=== PATIENT | female | born 1950 | race Caucasian/White ===

== ENCOUNTER → 2017-10-04 | Outpatient (CLI) | payer MEDICARE ==
[~2017-10-04] MED LIST: CALCTAB32 OR; CYAN1TAB24 PO; GABA300C5 PO; GLUC1CAP16 PO; GLUC500C4 OR; LEVO.075 PO; LEVO100T5 PO; MULTTAB67 PO; OXYC-360 PO; POTA2.5T PO; SM M250T PO; TAB-TAB PO; VIVE0.02 TD
[2017-10-04 11:47] LABS: AUTOMATED NEUTROPHIL # 6.4 TH/MM3 (1.8-7.7); BASOPHIL # 0.1 TH/MM3 (0-0.2); BASOPHIL % 0.7 % (0.0-2.0); EOSINOPHIL # 0.2 TH/MM3 (0-0.4); EOSINOPHIL % 1.9 % (0.0-4.0); HEMATOCRIT 44.1 % (35.0-46.0); HEMOGLOBIN 14.9 GM/DL (11.6-15.3); LYMPHOCYTE # 2.8 TH/MM3 (1.0-4.8); MEAN CELL VOLUME 89.2 FL (80.0-100.0); MEAN CORPUSCULAR HEMOGLOBIN 30.1 PG (27.0-34.0); MEAN CORPUSCULAR HGB CONC 33.8 % (32.0-36.0); MEAN PLATELET VOLUME 9.7 FL (7.0-11.0); MONO % 8.4 % (0.0-8.0); MONOCYTE # 0.9 TH/MM3 (0-0.9); PLATELET COUNT 241 TH/MM3 (150-450); RED BLOOD COUNT 4.95 MIL/MM3 (4.00-5.30); WHITE BLOOD COUNT 10.4 TH/MM3 (4.0-11.0)
[2017-10-04 11:48] LABS: PROTHROMBIN TIME - PATIENT 10.2 SEC (9.8-11.6)
[2017-10-04 12:12] LABS: ALBUMIN 3.9 GM/DL (3.4-5.0); AST (GOT) 14 U/L (15-37); BLOOD UREA NITROGEN 20 MG/DL (7-18); CALCIUM 9.1 MG/DL (8.5-10.1); CHLORIDE 104 MEQ/L (98-107); CREATININE 0.69 MG/DL (0.50-1.00); GLOMERULAR FILTRATION RATE 85 ML/MIN (>89); GLUCOSE,FASTING 91 MG/DL (74-99); SODIUM (NA) 140 MEQ/L (136-145)
[2017-10-04 12:13] LABS: ALT (GPT) 24 U/L (10-53)
[2017-10-04 12:16] LABS: ALKALINE PHOSPHATASE 107 U/L (45-117); TOTAL BILIRUBIN ADULT 0.4 MG/DL (0.2-1.0); TOTAL PROTEIN 7.2 GM/DL (6.4-8.2)
[2017-10-04 12:19] LABS: BILIRUBIN, URINE NEG (NEG); BLOOD, URINE NEG (NEG); GLUCOSE,URINE NEG (NEG); KETONE, URINE NEG (NEG); MUCUS URINE FEW /lpf (OCC); NITRITE,URINE NEG (NEG); PH, URINE 7.5 (5.0-8.5); URINE COLOR LIGHT-YELLOW (YELLW/STRAW); URINE LEUKOCYTE ESTERASE NEG (NEG)
--- NOTE | 2017-10-05 20:39 | EKG ---
Date Performed: 10/04/2017 Time Performed: 10:12:35 PTAGE: 67 years EKG: Sinus rhythm WITH SINUS ARRHYTHMIA MARKED LEFT AXIS DEVIATION NONSPECIFIC T-WAVE ABNORMALITY ABNORMAL ECG Since t he PREVIOUS TRACING , no significant change noted DOCTOR: Trish Sloan Interpretating Date/Time 10/05/2017 20:39:16
== END ==
LOC: CPRE 09:47
PROVIDERS: ATTEND Surgery
DX: Z01.810 Encounter for preprocedural cardiovascular examination (principal); Z01.812 Encounter for preprocedural laboratory examination; M79.609 Pain in unspecified limb; R94.31 Abnormal electrocardiogram [ECG] [EKG]
CPT/HCPCS: 36415; 80053; 81001; 85025; 85610; 85730; 93005

== ENCOUNTER → 2017-10-07 | Day surgery (SDC) | payer MEDICARE ==
--- NOTE | 2017-10-06 14:29 | MH ---
cc: Hannah Reno MD DATE OF ADMISSION: 10/07/2017 ADMITTING DIAGNOSIS: Torn medial meniscus left knee, now for arthroscopy left knee. HISTORY OF PRESENT ILLNESS: This pleasant 67-year-old female is being admitted today for arthroscopy left knee due to torn medial meniscus. OTHER PAST HISTORY: The patient has a history of hypothyroidism. MEDICATIONS: Currently takes levothyroxine, estradiol, glucosamine, magnesium and potassium chloride. PREVIOUS SURGERIES: Coronary artery bypass x 2. REVIEW OF SYSTEMS: Noncontributory. FAMILY HISTORY: Noncontributory. SOCIAL HISTORY: She does not drink but does smoke cigarettes. ALLERGIES: NO KNOWN ALLERGIES. PHYSICAL EXAMINATION: GENERAL: We find a 67-year-old female, well-developed, well-nourished, oriented x 3. Complains of pain in the left knee. VITAL SIGNS: Blood pressure 132/86, pulse 90 and regular, respirations 18, temperature 98.1, pulse oximetry 97% on room air. HEENT: Eyes PERRLA. EOMI. Ears, nose, mouth clear. NECK: Supple. LUNGS: Clear. HEART: Regular rate. ABDOMEN: Soft. Positive bowel sounds. Nontender. EXTREMITIES: Reveals the left knee to be tender about the medial joint surface. She is neurovascularly intact to her toes. IMPRESSION AT THIS TIME: Torn medial meniscus, left knee. PLAN: Admission for arthroscopy left knee today. The patient was given a prescription for postoperative pain control in the office. Hannah Reno MD JRR/TL , 02:12 PM , 02:28 PM
[~2017-10-07] VITALS: Ht 162.6 cm; Wt 81.3 kg
[~2017-10-07] MED LIST changes: +ACETAMINOPHEN/HYDROcodone 325 MG/5 MG TAB PO PRN; +BUPIVACAINE HCL PF 0.25% 30 ML VIAL INFIL ONE; -CALCTAB32 OR; +CHLORHEXIDINE GLUCONATE 2 % 1 PACK (2 CLOTHS) TOPICAL PRN; +CHLORHEXIDINE GLUCONATE 4% SOLN 120 ML BTL TOPICAL SCH; +DEXAMETHASONE SOD PHOS 4 MG/ML VIAL OTHER ONE; +DO NOT ADM ANY ANTICOAGULANT DRUGS PRN; -GLUC500C4 OR; +LACTATED RINGER'S 1000 ML IV PRN; -LEVO.075 PO; +LIDOCAINE HCL 1% PF 5 ML SYRINGE OTHER ONE; +MEPERIDINE HCL 50 MG/ML VIAL IM PRN; +METOPROLOL TARTRATE 25 MG TAB PO PRN; +ONDANSETRON HCL 4 MG/2 ML VIAL IV ONE; +ONDANSETRON ODT 4 MG TAB PO PRN; -OXYC-360 PO; +POVIDONE IODINE 5% (ANTISEPSIS KIT) 4 APPLICATIONS EACH NARE PRN; +PROPOFOL 200 MG/20 ML AMP IV ONE; +SODIUM CHLORID 0.9% 500 ML IV PRN; -TAB-TAB PO; -VIVE0.02 TD; +ceFAZolin 2 GM PREMIX 50 ML IV SCH
--- NOTE | 2017-10-07 09:22 | HHI.PR ---
Immediate Post Op Note Procedure Date: Oct 07, 2017 Pre Op Diagnosis: Torn medial meniscus left knee Post Op Diagnosis: Torn medial meniscus left knee Surgeon: Dr. Hannah Reno MD Storage Facility Rental Clerk(s): Keren BANKS Procedure: left knee Arthroscopy with debridement of torn medial meniscus Complications: none Specimen(s) removed: none Estimated blood loss: less than 10cc Anesthesia: General Drains: None IVF Urinary Output (mLs): 0 (No valle) Tourniquet time (min at mmHg) none Patient to: PACU Patient Condition: Good Date/Time of Procedure: SEE SURGICAL CARE RECORD Keren Leonard Oct 07, 2017 09:22
[2017-10-07 10:27] VITALS: BP 155/78; PULSE 80; RESP 18; TEMP 97.6; O2SAT 97
--- NOTE | 2017-10-07 11:44 | MP ---
cc: Hannah Reno MD DATE OF OPERATION: 10/07/2017 PREOPERATIVE DIAGNOSIS: Torn medial meniscus left knee. POSTOPERATIVE DIAGNOSIS: Torn medial meniscus left knee plus chondromalacia medial compartment. SURGERY PERFORMED: Arthroscopy with excision of torn medial meniscus and ArthroCare shaving of the medial compartment chondromalacia. SURGEON: Nadeem Reno MD PRINCIPAL ARCHITECT: DARREN Quintana ANESTHESIA: LMA. PROCEDURE: The patient was brought to the operating room and placed on the operating room table in the supine position. After successful induction of general anesthesia, the patient's left leg was prepped and draped in the usual manner. The knee was then placed in a knee valladares and tightened. Arthroscopic examination was then performed by making a stab wound over the proximal superior and medial aspect of the patellofemoral joint for insertion of the inflow cannula and fluid, followed by stab wounds over the medial and lateral joint margins respectively for insertion of the arthroscope, shaver and probe. Arthroscopic examination was then performed which revealed the findings were intact lateral compartment, intact patellofemoral joint, intact anterior cruciate medial compartment. Found to have grade 3 chondromalacia changes. The weight-bearing surface of the medial femoral condyle and tibial surfaces shaved smooth using the ArthroCare system. A large tear of the medial meniscus was also identified and removed using ArthroCare cutters, alphonse and probes to afford a smooth surface. The rest of the medial compartment count to be intact. The wound irrigated copiously with lactated Ringer's solution. Excess fluid removed. 10 mL of 0.25% Marcaine plain with 2 mL of Decadron inserted into the knee joint. Skin approximately with interrupted 4-0 nylon suture. Wet and then dry dressing applied to the wound, followed by Xeroform gauze, sterile dressing, and thigh-high Martinez wrap. No tourniquet utilized. Estimated blood loss 10 mL. Sponge and suture counts were correct. The patient tolerated the procedure well and left the operating room in satisfactory condition. DARREN Quintana was present during the entire procedure to include patient positioning and the procedure. The medical necessity of a nurse practitioner as first officer was indicated in this case due to the surgical complexity of the case itself. During this surgical case, the surgical technologist was working the back table while my surgical technologist, DARREN, was directly assisting me. JMD KELLY Kilpatrick/CAROLE , 09:12 AM , 09:35 AM
== END | disposition home or self-care (01) ==
LOC: HSDC 05:33 → PHSDC 05:33
PROVIDERS: ATTEND Surgery
DX: S83.242A Other tear of medial meniscus, current injury, left knee, initial encounter (principal); M94.262 Chondromalacia, left knee
CPT/HCPCS: 01400; 29881; J0690; J1100; J2405; J7120

== ENCOUNTER 2018-03-04 08:58 | Inpatient (IN) ==
[2018-03-04] MEDS ORDERED: Chlorhexidine Gluconate 2% 1 Pack (2 Cloths) TOPICAL SCH (09:30)
[2018-03-04] MEDS ORDERED: Metoprolol Tartrate 25 MG Tablet PO SCH (09:30)
[2018-03-04] MEDS ORDERED: Sodium Chlor 0.9% Inj 500 ML IV.SIG SCH (10:00)
[2018-03-04 10:25] LABS: Baso # (Auto) 0.1 th/mm3 (0.0-0.2); Baso % (Auto) 0.5 % (0.0-2.0); Eos # (Auto) 0.2 th/mm3 (0.0-0.4); Eos % (Auto) 1.8 % (0.0-4.0); Hematocrit 41.4 % (35.0-46.0); Hemoglobin 14.1 gm/dL (11.6-15.3); Lymph # (Auto) 2.2 th/mm3 (1.0-4.8); Lymph % (Auto) 19.7 % (9.0-44.0); Mean Corpuscular Hemoglobin 30.7 pg (27.0-34.0); Mean Corpuscular Volume 90.3 fL (80.0-100.0); Mean Platelet Volume 9.3 fL (7.0-11.0); Mono # (Auto) 0.8 th/mm3 (0.0-0.9); Neut # (Auto) 7.8 th/mm3 (1.8-7.7); Platelet Count 220 th/mm3 (150-450); Red Blood Count 4.58 mil/mm3 (4.00-5.30); Red Cell Distribution Width 13.9 % (11.6-17.2)
[2018-03-04] MEDS ORDERED: Heparin 10,000 UNITS/10 ML Vial (for IV use) ONE (10:29)
[2018-03-04] MEDS ORDERED: Heparin - SQ 10,000 UNITS/ML Vial ONE (10:30)
[2018-03-04] MEDS ORDERED: Bupivacaine/Epinephrine PF Inj 0.5% 30 ML Vial ONE (10:30)
[2018-03-04 10:32] LABS: Prothrombin Time 10.4 sec (9.8-11.6)
[2018-03-04 10:40] LABS: Calcium 8.8 mg/dL (8.5-10.1); Carbon Dioxide 28.6 meq/L (21.0-32.0)
[2018-03-04] MEDS ORDERED: Famotidine PF Inj 20 MG/2 ML Vial ONE (11:02)
[2018-03-04] MEDS ORDERED: Phenylephrine/NS 1000 MCG/10ML Syringe IV.PUSH ONE (12:00)
[2018-03-04] MEDS ORDERED: Iohexol 300 MG/ML 50 ML Vial (for Rad Diag) IVCONTRAST ONE (12:00)
[2018-03-04] MEDS ORDERED: Lidocaine PF 1% Inj 5 ML Syringe INFILTRATN ONE (12:00)
[2018-03-04] MEDS ORDERED: Heparin/NS PF Inj 500 ML I-CATHETER PRN (12:56)
[2018-03-04] MEDS ORDERED: Cathflo Activase Inj 10 MG in Sodium Chlor 0.9% Inj 500 ML I-CATHETER PRN (13:00)
[2018-03-04] MEDS ORDERED: Cathflo Activase Inj 2 MG Vial I-ARTERIAL ONE (13:15)
[2018-03-04 14:15] LABS: INR 1.1 Ratio
[2018-03-04] MEDS ORDERED: Metoprolol Tartrate 25 MG Tablet PO PRN (14:21)
[2018-03-04] MEDS ORDERED: fentaNYL Citrate Inj 100 MCG/2 ML Ampul ONE (14:55)
[2018-03-04 15:06] LABS: Baso # (Auto) 0.1 th/mm3 (0.0-0.2); Baso % (Auto) 0.9 % (0.0-2.0); Eos # (Auto) 0.1 th/mm3 (0.0-0.4); Eos % (Auto) 1.3 % (0.0-4.0); Hematocrit 45.5 % (35.0-46.0); Hemoglobin 14.9 gm/dL (11.6-15.3); Lymph # (Auto) 1.7 th/mm3 (1.0-4.8); Lymph % (Auto) 15.4 % (9.0-44.0); Mean Corpuscular HGB Conc 32.8 % (32.0-36.0); Mean Corpuscular Hemoglobin 30.4 pg (27.0-34.0); Mean Corpuscular Volume 92.8 fL (80.0-100.0); Mean Platelet Volume 10.5 fL (7.0-11.0); Mono # (Auto) 0.3 th/mm3 (0.0-0.9); Mono % (Auto) 2.8 % (0.0-8.0); Neut # (Auto) 8.8 th/mm3 (1.8-7.7); Neut % (Auto) 79.6 % (16.0-70.0); Platelet Count 219 th/mm3 (150-450); Red Cell Distribution Width 14.3 % (11.6-17.2); White Blood Count 11.1 th/mm3 (4.0-11.0)
[2018-03-04 15:24] LABS: Activated Partial Thrombo Time 81.6 sec (24.3-30.1)
[2018-03-04] MEDS: Gabapentin 300 MG Capsule PO SCH (16:21)
[2018-03-04 20:31] LABS: Baso % (Auto) 0.4 % (0.0-2.0); Hematocrit 40.9 % (35.0-46.0); Hemoglobin 13.6 gm/dL (11.6-15.3); Lymph % (Auto) 8.8 % (9.0-44.0); Mean Corpuscular HGB Conc 33.3 % (32.0-36.0); Mean Corpuscular Hemoglobin 30.4 pg (27.0-34.0); Mean Corpuscular Volume 91.3 fL (80.0-100.0); Mean Platelet Volume 9.4 fL (7.0-11.0); Mono # (Auto) 0.5 th/mm3 (0.0-0.9); Neut # (Auto) 10.3 th/mm3 (1.8-7.7); Neut % (Auto) 86.8 % (16.0-70.0); Platelet Count 199 th/mm3 (150-450); Red Blood Count 4.48 mil/mm3 (4.00-5.30); Red Cell Distribution Width 13.8 % (11.6-17.2); White Blood Count 11.8 th/mm3 (4.0-11.0)
[2018-03-04] MEDS: HYDROmorphone PF Inj 2 MG/ML Vial IV.PUSH PRN (20:36)
[2018-03-05] MEDS: HYDROmorphone PF Inj 2 MG/ML Vial IV.PUSH PRN (00:28)
[2018-03-05] MEDS: Gabapentin 300 MG Capsule PO SCH ×3 (00:28→17:24)
[2018-03-05 02:45] LABS: Baso # (Auto) 0.1 th/mm3 (0.0-0.2); Baso % (Auto) 0.6 % (0.0-2.0); Eos % (Auto) 0.2 % (0.0-4.0); Hematocrit 38.9 % (35.0-46.0); Hemoglobin 12.9 gm/dL (11.6-15.3); Lymph # (Auto) 1.3 th/mm3 (1.0-4.8); Lymph % (Auto) 10.6 % (9.0-44.0); Mean Corpuscular HGB Conc 33.2 % (32.0-36.0); Mean Corpuscular Hemoglobin 30.7 pg (27.0-34.0); Mean Corpuscular Volume 92.5 fL (80.0-100.0); Mean Platelet Volume 8.9 fL (7.0-11.0); Mono # (Auto) 0.9 th/mm3 (0.0-0.9); Mono % (Auto) 7.5 % (0.0-8.0); Neut # (Auto) 9.9 th/mm3 (1.8-7.7); Neut % (Auto) 81.1 % (16.0-70.0); Platelet Count 168 th/mm3 (150-450); Red Blood Count 4.21 mil/mm3 (4.00-5.30); Red Cell Distribution Width 13.7 % (11.6-17.2); White Blood Count 12.2 th/mm3 (4.0-11.0)
[2018-03-05 02:54] LABS: Activated Partial Thrombo Time 26.6 sec (24.3-30.1)
[2018-03-05] MEDS: Levothyroxine 100 MCG Tablet PO SCH (06:24)
[2018-03-05] MEDS ORDERED: Cathflo Activase Inj 10 MG in Sodium Chlor 0.9% Inj 500 ML I-CATHETER PRN ×3 (07:11→12:00)
[2018-03-05] MEDS ORDERED: Heparin/NS PF Inj 500 ML I-CATHETER PRN (07:11)
[2018-03-05] MEDS ORDERED: fentaNYL Citrate Inj 250 MCG/5 ML Ampul ONE (07:12)
[2018-03-05] MEDS ORDERED: Bupivacaine/Epinephrine 0.5% Inj 50 ML Vial ONE (07:24)
[2018-03-05] MEDS ORDERED: Heparin 10,000 UNITS/10 ML Vial (for IV use) ONE (07:33)
[2018-03-05] MEDS ORDERED: Heparin - SQ 10,000 UNITS/ML Vial ONE (07:33)
[2018-03-05 09:59] LABS: Baso % (Auto) 0.4 % (0.0-2.0); Eos # (Auto) 0.1 th/mm3 (0.0-0.4); Hematocrit 39.1 % (35.0-46.0); Hemoglobin 12.9 gm/dL (11.6-15.3); Lymph # (Auto) 2.3 th/mm3 (1.0-4.8); Lymph % (Auto) 20.2 % (9.0-44.0); Mean Corpuscular HGB Conc 33.1 % (32.0-36.0); Mean Corpuscular Hemoglobin 30.3 pg (27.0-34.0); Mean Corpuscular Volume 91.6 fL (80.0-100.0); Mean Platelet Volume 8.7 fL (7.0-11.0); Mono # (Auto) 0.9 th/mm3 (0.0-0.9); Mono % (Auto) 7.9 % (0.0-8.0); Neut # (Auto) 8.1 th/mm3 (1.8-7.7); Neut % (Auto) 70.5 % (16.0-70.0); Platelet Count 164 th/mm3 (150-450); Red Blood Count 4.27 mil/mm3 (4.00-5.30); Red Cell Distribution Width 14.1 % (11.6-17.2); White Blood Count 11.5 th/mm3 (4.0-11.0)
--- NOTE | 2018-03-05 10:43 | MP ---
cc: Ross Machado MD DATE OF OPERATION: 03/04/2018 PREOPERATIVE DIAGNOSIS: Limb-threatening right lower extremity ischemia. POSTOPERATIVE DIAGNOSIS: Limb-threatening right lower extremity ischemia. OPERATIVE PROCEDURE: Right femoral arteriogram with placement of TPA infusion catheter. SURGEON: Ross Machado MD DOCTOR OF CHIROPRACTIC: DUY Pérez ANESTHESIA: LMA/local. DESCRIPTION OF PROCEDURE: With the patient in the supine position and under sedation, the abdomen, both groins, and thighs were prepped with Betadine and draped in a sterile fashion. Following a protocol timeout, the skin and subcutaneous tissue surrounding the left common femoral access site was preemptively infiltrated with 0.5% Marcaine with epinephrine. Utilizing ultrasound guidance, an 18-gauge needle was inserted into the left mid common femoral lumen, retrograde approach. A J-wire was advanced under fluoroscopic guidance into the iliac artery. The needle was exchanged for a 5-Scottish hemostatic sheath, which was advanced into the left external iliac artery under fluoroscopic guidance. An Advantage guidewire Omni catheter combination was navigated into the sub-renal aorta. Flush aortogram confirmed wide patency of the distal aorta, both common internal and external iliac arteries. The Advantage guidewire was advanced into the right mid common femoral lumen, and the Omni catheter exchanged for a Quick-Cross catheter, which was parked within the mid common femoral lumen. Diluted contrast injected via the Quick-Cross catheter revealed occlusion of the right femoral popliteal bypass vein graft throughout its entire length. The profunda remained patent, and the profunda collaterals extended around the knee joint. The popliteal, anterior, posterior, tibial, and peroneal arteries did not reconstitute. Only collateral vessels extended below the geniculate level. The Advantage guidewire was navigated into the thrombosed in situ femoral popliteal vein graft. I was able to negotiate the Advantage guidewire into the below-knee popliteal. TPA infusion catheter was then placed across the full length of the occluded bypass graft with the tip parked within the popliteal artery just beyond the vein graft to popliteal anastomosis. TPA 2 mg was infused and a continuous infusion of TPA at 0.5 mg per hour initiated. It should noted that to allow placement of the infusion catheter, the 5-Scottish hemostatic sheath was exchanged for a 6-Scottish, 45 cm hemostatic sheath, which was guided over the aortic bifurcation and parked within the distal right common femoral artery. At conclusion, there were no operative complications. Also, prior to initial angiogram, the patient was systemically heparinized with 5000 units. At the conclusion of the procedure, no complications. The patient returned to postanesthesia in stable condition, having tolerated the procedure well. MD MARQUITA Weber/krys , 10:05 AM , 10:14 AM
[2018-03-05] MEDS ORDERED: Morphine Inj 4 MG/ML Vial IV.PUSH PRN (10:45)
--- NOTE | 2018-03-05 11:06 | MP ---
cc: Ross Machado MD DATE OF OPERATION: 03/05/2018 DATE OF OPERATION: 03/05/2018. PREOPERATIVE DIAGNOSIS: Limb threatening right lower extremity ischemia. POSTOPERATIVE DIAGNOSIS: Limb threatening right lower extremity ischemia. PROCEDURE PERFORMED: Followup selective right femoral arteriogram with distal advancement of TPA infusion catheter. SURGEON: Ross Machado MD CASKET ASSEMBLER: DUY Pérez ANESTHESIA: LMA. DESCRIPTION OF THE OPERATIVE PROCEDURE: With the patient in the supine position LMA was induced, the lower abdomen, both groins and thighs, prepped with Betadine and draped in a sterile fashion. Diluted contrast was injected via the 6-Samoan hemostatic sheath. This revealed reestablishment of the left femoral popliteal in situ vein graft patency. The vein was patent from its femoral anastomosis to the popliteal anastomosis. However, no tibial or collateral runoff was present below the popliteal anastomosis. Diluted contrast was then injected via the TPA infusion catheter reconfirming patency of the situ vein graft. The reconstitution of the peroneal artery, approximately 15 cm distal to its origin, was noted. An Advantage guidewire was carefully negotiated into the mid peroneal artery. The infusion catheter was exchanged for a Quick-Cross catheter, confirming patency of the peroneal from the mid calf level distally. The peroneal generously perfused the right ankle and foot. The Quick-Cross catheter was reexchanged for the TPA infusion catheter, which was negotiated into the mid peroneal. TPA infusion via the catheter was restarted. The patient returned to the postanesthesia in stable condition, having tolerated the procedure well. Ross Machado MD JTS/ch , 10:09 AM , 10:17 AM
[2018-03-05] MEDS: HEPARIN IV.SIG SCH ×2 (11:25)
[2018-03-05] MEDS: WATER IV.SIG SCH ×2 (11:25)
[2018-03-05] MEDS: DEXTROSE 5% IV.SIG SCH ×2 (11:25)
[2018-03-05] MEDS ORDERED: Lidocaine PF 1% Inj 5 ML Syringe INFILTRATN ONE (12:00)
[2018-03-05] MEDS ORDERED: Phenylephrine/NS 1000 MCG/10ML Syringe IV.PUSH ONE (12:00)
[2018-03-05] MEDS: Morphine Inj 4 MG/ML Vial IV.PUSH PRN ×4 (12:23→21:46)
[2018-03-05] MEDS: Heparin/NS PF Inj 500 ML I-CATHETER SCH ×2 (17:47→17:48)
[2018-03-05 17:54] LABS: Baso % (Auto) 0.1 % (0.0-2.0); Hematocrit 39.9 % (35.0-46.0); Hemoglobin 13.5 gm/dL (11.6-15.3); Lymph # (Auto) 1.2 th/mm3 (1.0-4.8); Lymph % (Auto) 9.2 % (9.0-44.0); Mean Corpuscular HGB Conc 33.9 % (32.0-36.0); Mean Corpuscular Hemoglobin 30.7 pg (27.0-34.0); Mean Corpuscular Volume 90.6 fL (80.0-100.0); Mean Platelet Volume 8.7 fL (7.0-11.0); Mono # (Auto) 0.9 th/mm3 (0.0-0.9); Mono % (Auto) 6.7 % (0.0-8.0); Neut # (Auto) 11.1 th/mm3 (1.8-7.7); Platelet Count 159 th/mm3 (150-450); Red Blood Count 4.41 mil/mm3 (4.00-5.30); White Blood Count 13.2 th/mm3 (4.0-11.0)
[2018-03-05 18:15] LABS: Activated Partial Thrombo Time 31.7 sec (24.3-30.1)
[2018-03-05 23:10] LABS: Baso # (Auto) 0.2 th/mm3 (0.0-0.2); Baso % (Auto) 1.2 % (0.0-2.0); Eos % (Auto) 0.1 % (0.0-4.0); Hemoglobin 13.1 gm/dL (11.6-15.3); Lymph # (Auto) 1.6 th/mm3 (1.0-4.8); Lymph % (Auto) 13.2 % (9.0-44.0); Mean Corpuscular HGB Conc 33.7 % (32.0-36.0); Mean Corpuscular Hemoglobin 30.5 pg (27.0-34.0); Mean Corpuscular Volume 90.7 fL (80.0-100.0); Mean Platelet Volume 9.2 fL (7.0-11.0); Mono % (Auto) 7.8 % (0.0-8.0); Neut # (Auto) 9.6 th/mm3 (1.8-7.7); Neut % (Auto) 77.7 % (16.0-70.0); Platelet Count 150 th/mm3 (150-450); White Blood Count 12.4 th/mm3 (4.0-11.0)
[2018-03-05 23:16] LABS: Activated Partial Thrombo Time 28.3 sec (24.3-30.1)
[2018-03-06] MEDS: Gabapentin 300 MG Capsule PO SCH ×3 (00:45→16:37)
[2018-03-06] MEDS: Morphine Inj 4 MG/ML Vial IV.PUSH PRN ×2 (03:40→06:48)
[2018-03-06] MEDS: Heparin/NS PF Inj 500 ML I-CATHETER SCH ×2 (04:54→16:12)
[2018-03-06 05:30] LABS: Baso % (Auto) 0.4 % (0.0-2.0); Eos # (Auto) 0.2 th/mm3 (0.0-0.4); Eos % (Auto) 1.2 % (0.0-4.0); Hematocrit 38.6 % (35.0-46.0); Hemoglobin 12.8 gm/dL (11.6-15.3); Lymph # (Auto) 2.9 th/mm3 (1.0-4.8); Lymph % (Auto) 20.6 % (9.0-44.0); Mean Corpuscular HGB Conc 33.2 % (32.0-36.0); Mean Corpuscular Hemoglobin 30.5 pg (27.0-34.0); Mean Corpuscular Volume 91.9 fL (80.0-100.0); Mean Platelet Volume 8.5 fL (7.0-11.0); Mono # (Auto) 1.5 th/mm3 (0.0-0.9); Mono % (Auto) 10.6 % (0.0-8.0); Neut # (Auto) 9.4 th/mm3 (1.8-7.7); Neut % (Auto) 67.2 % (16.0-70.0); Platelet Count 131 th/mm3 (150-450); Red Cell Distribution Width 13.9 % (11.6-17.2)
[2018-03-06 05:40] LABS: Activated Partial Thrombo Time 30.8 sec (24.3-30.1)
[2018-03-06] MEDS: Levothyroxine 100 MCG Tablet PO SCH (06:17)
[2018-03-06] MEDS ORDERED: Heparin 10,000 UNITS/10 ML Vial (for IV use) ONE (07:21)
[2018-03-06] MEDS ORDERED: Heparin - SQ 10,000 UNITS/ML Vial ONE (07:21)
[2018-03-06] MEDS ORDERED: fentaNYL Citrate Inj 100 MCG/2 ML Ampul ONE (09:08)
[2018-03-06] MEDS ORDERED: Metoprolol Inj 5 MG/5 ML Vial IV.PUSH PRN (10:44)
[2018-03-06] MEDS ORDERED: Atropine Inj 1 MG/ML Vial IV.PUSH STA (10:50)
[2018-03-06] MEDS ORDERED: Morphine Inj 4 MG/ML Vial IV.PUSH PRN (10:57)
[2018-03-06] MEDS ORDERED: Iohexol 300 MG/ML 50 ML Vial (for Rad Diag) IVCONTRAST ONE (12:00)
[2018-03-06 13:09] LABS: Activated Partial Thrombo Time 26.2 sec (24.3-30.1)
[2018-03-06] MEDS: WATER IV.SIG SCH ×2 (14:37)
[2018-03-06] MEDS: HEPARIN IV.SIG SCH ×2 (14:37)
[2018-03-06] MEDS: DEXTROSE 5% IV.SIG SCH ×2 (14:37)
[2018-03-07] MEDS: Gabapentin 300 MG Capsule PO SCH ×2 (00:06→08:09)
[2018-03-07] MEDS: Levothyroxine 100 MCG Tablet PO SCH (05:30)
[2018-03-07 05:46] LABS: Hematocrit 34.3 % (35.0-46.0); Hemoglobin 11.7 gm/dL (11.6-15.3); Mean Corpuscular HGB Conc 34.1 % (32.0-36.0); Mean Corpuscular Hemoglobin 30.9 pg (27.0-34.0); Mean Corpuscular Volume 90.7 fL (80.0-100.0); Mean Platelet Volume 9.2 fL (7.0-11.0); Platelet Count 136 th/mm3 (150-450); Red Blood Count 3.78 mil/mm3 (4.00-5.30); White Blood Count 11.2 th/mm3 (4.0-11.0)
[2018-03-07 06:10] LABS: Calcium 8.8 mg/dL (8.5-10.1); Carbon Dioxide 28.9 meq/L (21.0-32.0); Potassium 3.6 meq/L (3.5-5.1)
[2018-03-07] MEDS: Heparin/NS PF Inj 500 ML I-CATHETER SCH (07:53)
[2018-03-07 10:10] VITALS: BP 136/74; PULSE 94; RESP 21; TEMP 97.7; O2SAT 97
--- NOTE | 2018-03-07 13:02 | MD ---
cc: Ross Machado MD, Joshua MD DATE OF DISCHARGE: 03/07/2018 DISCHARGE DIAGNOSES: 1. Limb-threatening right lower extremity ischemia. 2. Hypertension. 3. Hypercholesterolemia. 4. Chronic obstructive pulmonary disease/chronic smoker. HISTORY: This 68-year-old female in 2011 underwent right femoral popliteal bypass (in situ, below-knee) by my retired associate, Bandar Conde MD. During the past month, she developed pain and numbness within the right foot. She was evaluated by several podiatrists. A CT angiogram 1 month ago documented patency of her femoral popliteal bypass, popliteal, and all 3 proximal tibial arteries. She had what appeared to be significant occlusive disease within the distal right tibial vessels. One week prior to this admission, she describes abrupt worsening of her right foot pain and numbness, which she had not reported to my office. She was brought in on the day of this admission for previously planned contrast angiogram to further investigate what we felt to be significant tibial disease that might be causing her ischemic complaints. Past medical/surgical history, review of systems, social/family history and physical findings are documented in my admission summary. HOSPITAL COURSE: Ms. Holley was prepared for, and on the day of admission underwent aortofemoral arteriogram. The in situ right below-knee femoral popliteal bypass was notably thrombosed throughout. Also, the above and below-knee popliteal artery was completely thrombosed, as were all 3 the tibial arteries. Only a collateral flow was evident below the profunda. TPA infusion catheter was negotiated through the in situ vein graft and parked within the below-knee popliteal. Following 24 hours of TPA infusion, in situ vein graft patency was reestablished. Faint reconstitution of the peroneal at the mid tibial level was then apparent. The infusion catheter was advanced through the occluded proximal segment of the peroneal into the mid peroneal level of patency, and TPA infusion continued for an additional 24 hours. During this time, fibrinogen levels gradually diminished to 100. Followup angiogram disclosed reestablishment of not only in situ vein graft and popliteal arterial patency, but also the entire peroneal. The peroneal was quite small in caliber. I was unable to address the occluded anterior and posterior tibial arteries due to the dangerously low diminishing fibrinogen levels and risk associated with continued TPA infusion. The femoral sheath was removed. After adequate recovery of fibrinogen levels and ACT below 150. Subsequently, her right foot pain and numbness have resolved. Doppler flow is triphasic within the in situ vein graft and biphasic within the right dorsalis pedis. The right foot is warm, with brisk capillary refill. She has no common femoral access related complications. No cardiorespiratory complaints. She is tolerating a heart-healthy diet, voiding and ambulating well. DISPOSITION: Ms. Holley expressed her displeasure with our hospital care. She complained vehemently about the nursing care and also about my lack of addressing all of her concerns. I have asked for her to find another vascular surgeon to follow her after discharge from the hospital. Of course I will be available to address any of her problems within the next 30 days, but explained that she needed to find another vascular surgeon to care for her thereafter. I am going to add Plavix to her best medical therapy regimen. I explained the possible side effects from Plavix. I also encouraged her to stop smoking. She has very limited tibial runoff, and I fully expect that if she continues to smoke (even if she is able to stop), that likely bypass failure will occur again at some point and will prove limb threatening. I explained that more than likely she will lose her leg at some point in the future. Ross Machado MD JTS/kb , 11:00 AM , 11:11 AM
--- NOTE | 2018-03-09 20:43 | MP ---
cc: Ross Machado MD DATE OF OPERATION: 03/07/2018 Following 48 hours of intraarterial TPA infusion. SURGEON: Ross Machado MD PRINT MANAGER: DUY Pérez ANESTHESIA: MAC. DESCRIPTION OF PROCEDURE: With the patient in the supine position, IV sedation was induced, the abdomen, both groins, thighs and the entire right lower extremity prepped with Betadine and draped in a usual sterile fashion. No antibiotic prophylaxis was indicated. Diluted contrast was injected via the TPA infusion catheter with fluoroscopic imaging confirming wide patency of the in situ right femoral popliteal bypass, below-knee popliteal artery. The peroneal artery did not adequately visualize. The TPA infusion catheter, which was situated within the perineal extending down to the mid tibial level was creating an occlusion of the peroneal arterial lumen. I retracted the infusion catheter below the popliteal and repeated the diluted contrast injection. This disclosed patency of the peroneal from its origin to the ankle level with rather generous collateral perfusion across the ankle into the right forefoot purposes, 2 mg of nitroglycerin were injected via the infusion catheter and the contrast infusion repeated. This demonstrated more robust flow throughout the peroneal and its collaterals. The anterior tibial and posterior tibial arteries were occluded throughout and did not reconstitute distally. At this point, following 48 hours of TPA infusion, serum fibrinogen levels had diminished and I felt that further TPA infusion would increase risk of bleeding complications - therefore decided to not attempt lysis of potential clot within the anterior or posterior tibial arteries. The TPA infusion and heparin infusion were discontinued. I retracted the 6-Liberian hemostatic sheath into the left external iliac artery and secured it with a skin suture of 4-0 nylon. At the conclusion of the procedure, Doppler flow was robust, biphasic within the right dorsalis pedis in the foot. [place] and much better perfused. Also before leaving the room, diluted contrast injected via the hemostatic sheath confirmed. No technical defects from the sheath placement with rapid, unobstructed flow throughout the left iliac and femoral arteries. The patient returned to postanesthesia recovery in stable condition, having tolerated the procedure well. Ross Machado MD JTS/ct , 06:08 PM , 06:20 PM
== END 2018-03-07 12:16 | disposition home or self-care (01) ==
LOC: HSDC 08:58 → N03 14:15
PROVIDERS: ADMIT Surgery Vascular Surgery; ATTEND Surgery Vascular Surgery
PROC: ANGIOLE (2018-03-05 08:03)